=== PATIENT | female | born 1955 | race Caucasian/White ===

== ENCOUNTER 2021-12-18 23:08 | Observation (INO) ==
[2021-12-19] MEDS ORDERED: SODIUM CHLORIDE 0.9% 500 ML IV STA (00:07)
[2021-12-19] MEDS ORDERED: KETOROLAC 30 MG/1 ML VIAL IV STA (00:07)
[2021-12-19] MEDS ORDERED: VANCOMYCIN INJ 1,000 MG in SODIUM CHLORIDE 0.9% 250 ML IV STA ×2 (00:11→00:15)
[2021-12-19 00:57] LABS: Basophils # 0.1 10*3/uL (0.0-0.2); Basophils % 0.6 % (0.0-0.8); Eosinophils # 0.1 10*3/uL (0.0-0.87); Eosinophils % 0.6 % (0.00-10.9); Hematocrit 36.7 VOL% (35.7-47.0); Hemoglobin 12.1 GM/DL (12.0-16.0); Immature Granulocytes % 0.5 %; Immature Granulocytes Absolute 0.05 #; Lymphocytes # 1.4 10*3/uL (1.4-4.0); Lymphocytes % 13.8 % (21.3-54.2); Mean Corpuscular Volume 95.1 FL (87-102); Mean Platelet Volume 10.8 FL (9.6-12.0); Monocytes # 1.2 10*3/uL (0.11-0.8); Monocytes % 11.6 % (1.7-12.7); Neutrophils % 72.9 % (38.7-73.9); Platelet Count 218 T/CUMM (130-400); Red Blood Count 3.86 MC/CUMM (3.8-5.5); White Blood Count 10.3 T/CUMM (4-12)
[2021-12-19] MEDS ORDERED: diphenhydrAMINE 50 MG/1 ML VIAL ONE (01:18)
[2021-12-19] MEDS ORDERED: diphenhydrAMINE 50 MG/1 ML VIAL IV STA (01:18)
[2021-12-19 01:20] LABS: Alanine Aminotransferase 19 U/L (13-56); Albumin 2.9 G/DL (3.4-5.0); Alkaline Phosphatase 86 U/L (45-117); Aspartate Amino Transferase 15 U/L (0-37); Blood Urea Nitrogen 14 MG/DL (7-18); Carbon Dioxide 25 MMOL/L (21-32); Chloride 108 MMOL/L (98-107); Glucose 211 MG/DL (74-106); Osmolality,Calculated 283.5 MOS/KG (273-304); Potassium 3.6 MMOL/L (3.5-5.1); Sodium 139 MMOL/L (136-145); Total Protein 6.5 G/DL (6.4-8.2)
[2021-12-19] MEDS ORDERED: ONDANSETRON 4 MG/2 ML VIAL IV PRN (03:03)
[2021-12-19] MEDS ORDERED: MORPHINE 2 MG/1 ML SYRINGE IV PRN (03:03)
[2021-12-19] MEDS ORDERED: ACETAMINOPHEN 325 MG TABLET PO PRN (03:03)
[2021-12-19] MEDS ORDERED: hydrALAZINE 20 MG/1 ML VIAL IV PRN (03:03)
[2021-12-19] MEDS ORDERED: GLUCAGON 1 MG VIAL IM PRN (03:03)
[2021-12-19] MEDS ORDERED: DEXTROSE 10% 250 ML BAG IV PRN (03:19)
[2021-12-19] MEDS ORDERED: NICOTINE 14 MG/24 HR PATCH TRANSDERM PRN (04:32)
[2021-12-19] MEDS: LACTATED RINGERS 1,000 ML IV SCH (04:44)
[2021-12-19] MEDS: cefTRIAXone 1,000 MG in SODIUM CHLORIDE 0.9% 100 ML IV SCH (04:44)
[2021-12-19] MEDS: CLINDAMYCIN INJ 300 MG/50 ML PREMIX IV SCH ×4 (04:44→22:07)
[2021-12-19] MEDS: PANTOPRAZOLE 40 MG TABLET PO SCH (09:58)
[2021-12-19] MEDS: INSULIN LISPRO 100 UNIT/ML SUBCUT SCH ×4 (10:06→22:08)
[2021-12-19] MEDS ORDERED: fentaNYL 100 MCG/2 ML VIAL ONE (10:27)
[2021-12-19] MEDS ORDERED: SEVOFLURANE 1 UNIT/15 MINUTE INH ONE (10:28)
[2021-12-19] MEDS ORDERED: LIDOCAINE 2% 5 ML VIAL ONE (10:28)
[2021-12-19] MEDS ORDERED: propofoL 200 MG/20 ML VIAL IV ONE ×2 (10:28→11:05)
[2021-12-19] MEDS ORDERED: LACTATED RINGERS 1,000 ML IV SCH (11:00)
[2021-12-19] MEDS ORDERED: ONDANSETRON 4 MG/2 ML VIAL ONE (11:13)
[2021-12-19] MEDS ORDERED: DEXAMETHASONE 4 MG/1 ML VIAL ONE (11:13)
[2021-12-19] MEDS ORDERED: SUCCINYLCHOLINE 200 MG/10 ML VIAL ONE (11:28)
[2021-12-20] MEDS: LACTATED RINGERS 1,000 ML IV SCH ×2 (01:44→04:04)
[2021-12-20] MEDS: CLINDAMYCIN INJ 300 MG/50 ML PREMIX IV SCH ×2 (04:15→09:20)
[2021-12-20] MEDS: cefTRIAXone 1,000 MG in SODIUM CHLORIDE 0.9% 100 ML IV SCH (05:11)
[2021-12-20] MEDS: INSULIN LISPRO 100 UNIT/ML SUBCUT SCH ×2 (08:05→12:51)
[2021-12-20] MEDS: PANTOPRAZOLE 40 MG TABLET PO SCH (09:19)
[2021-12-20 12:43] VITALS: BP 144/57
== END 2021-12-20 13:35 | disposition home health service (06) ==
LOC: N.EDINP 23:08 → N.ED 23:08 → N.3E 12-19 03:28
PROVIDERS: ADMIT Internal Medicine; ATTEND Internal Medicine